=== PATIENT | female | born 1985 | race Caucasian/White ===

== ENCOUNTER 2017-12-02 16:58 | Emergency (ER) | payer BC, MEDICAID, OTHER ==
[2017-12-02] MEDS ORDERED: Diatrizoate Meglumine/Diatrizoate Sodium 37% 30 ML Bottle PO ONE (18:15)
[2017-12-02] MEDS ORDERED: Iopamidol 755 Mg/ML 100 ML Bottle IV ONE (18:15)
[2017-12-02] MEDS ORDERED: Sodium Chloride 0.9% 1,000 ML IV ONE (19:27)
[2017-12-02 20:08] VITALS: BP 134/78
--- NOTE | 2017-12-03 11:12 | ER ---
DATE SEEN: 12/02/2017 TIME SEEN: The patient was seen on arrival at 1710 hours. HISTORY OF PRESENT ILLNESS: The patient states she had 2 weeks of bloating. She did not eat any unusual food. She denies food intolerance, but she never thought about food intolerance. No previous history of colonoscopy. No previous CT scans of her abdomen. She has been told that she has Crohn's disease, and she will be following up with a hip hop artist in November. She had "a blood test" in [place] that said she had Crohn's disease. I am unsure what that is blood test could be, short of a CRP, C-reactive protein, a lactate level.I am not aware of any genetic test or a blood test that diagnoses Crohn's. No history of IBS. The patient notes yesterday she had onset of left lower quadrant abdominal pain at noon and it was worse today. She states she cannot take Tylenol because it causes her "blood to thin," and she "bleeds easily." ALLERGIES: None. MEDICATIONS: 1. Omeprazole 40 mg daily. 2. Singulair for asthma, 10 mg at bedtime. 3. Sertraline for depression. 4. vitamins. 5. Colace for constipation. PAST MEDICAL HISTORY: Depression, asthma, GERD, and constipation. REVIEW OF SYSTEMS: Negative, except for noted above. PHYSICAL EXAMINATION: VITAL SIGNS: Blood pressure 120/78, heart rate 67, respirations 15, oxygen saturation 98%, and temperature 36.6 degrees centigrade. 93.4 kg. BMI 30.4 kg/m2. GENERAL: A pleasant, tall woman in moderate discomfort. HEENT: PERRLA intact. Pharynx without abnormality. Teeth in good repair. NECK: No thyromegaly. No masses in neck. No cervical adenopathy. Supple. No bruits. LUNGS: Clear without rales, rhonchi, or wheezes. HEART: S1, S2. No murmur. No irregular rate or rhythm. ABDOMEN: Soft. No heel jar rebound. She has mild voluntary guarding. Mild distention. Bowel sounds present. No tinkles noted. No rushes. No CVA percussion tenderness. PELVIC/RECTAL: Not performed. MUSCULOSKELETAL: Lower extremities without edema. Deep tendon reflexes normal in upper and lower extremities. NEURO: Cranial nerves 2 through 12 intact. Sensory intact. Strength intact. No past pointing. Gait appropriate. WORKING DIAGNOSIS: Potentially, the patient may have lactose intolerance, or could have a gluten intolerance. She notes, when she ate strawberries and blueberries today, she had increased sudden abdominal discomfort. It is possible that some of the skin of these and/or the strawberry "seeds" may have caused problems or she may be allergic to it. LABORATORY FINDINGS: White count 9600, PMNs normal at 57, lymphocytes 30, monos 7, eos 5 (latter suggests some allergic component and/or parasites). Platelets 223,000 and is normal. INR is normal. PTT is normal, is actually 23.5. There is no suggestion of any bleeding disorder here. Complete metabolic panel is normal. See chart. Urinalysis is normal without bacteria. IMAGING: CAT scan was performed, no evidence for abnormality noted in the colon. She had thickening of the bladder and no evidence for colonic or gastrointestinal or intestinal abnormalities. No evidence for mesenteric adenopathy-increased lymph nodes. No evidence for thickening of structures in the stomach. ASSESSMENT: Etiology for the patient's pain is indeterminate. When I suggested diet as potential source of pain,it became more apparent that she does not tolerate milk products. Perhaps, there may have been a milk product that caused the problems when she had the strawberries today. PLAN: Follow up with doctor in GI. Try to discontinue dairy products and see if it makes a difference in her abdominal pain. No medicine was given on discharge for pain. There was no sign of Crohn's disease on the CAT scan. The abdominal CT was negative. She is advised to keep a 24-hour diary of the foods she eats and the side effects. This might be a way of coming up with foods that cause problems. It is possible she may have lactose intolerance or carbohydrate intolerance or other food intolerances, that she was not aware of. /[id number] SHARATH/SUREKHA COOK
== END 2017-12-02 20:19 | disposition home or self-care (01) ==
LOC: FB.ED 16:58
DX: R10.9 Unspecified abdominal pain (principal); K21.9 Gastro-esophageal reflux disease without esophagitis; Z79.899 Other long term (current) drug therapy
CPT/HCPCS: 36415; 74177; 80053; 81001; 83605; 85025; 85610; 85730; 96360; 99284; A9270-GY; J7040; Q9967